=== PATIENT | female | born 1960 | race Caucasian/White ===

== ENCOUNTER 2017-11-06 19:02 | Emergency (ER) | payer BC ==
[~2017-11-06] VITALS: Ht 157.5 cm; Wt 81.2 kg
[~2017-11-06 19:02] MED LIST: ASPI81TA28 PO; ATOR10TA82 PO; CALC-20 PO; CLR10 PO; GLC/500 PO; LISI2.5T5 PO
[2017-11-06 19:21] VITALS: TEMP 36.7; Ht 157.5 cm; Wt 81.2 kg
[2017-11-06] MEDS ORDERED: ACETAMINOPHEN 500 MG TAB PO STA (19:41)
--- NOTE | 2017-11-06 19:50 | EMERGENCY ROOM VISIT NOTE ---
ED Visit Note First contact with patient: 19:25 CHIEF COMPLAINT: Head injury HISTORY OF PRESENT ILLNESS: This 57-year-old female patient presented to the emergency department 1 day after receiving a head injury when she tripped in the basement, striking the posterior aspect her head on the concrete wall. There was no brief loss of consciousness. There has been no vomiting. The patient complains of tenderness on palpation of the crown of the head with some bilateral neck discomfort. The patient denies loss of consciousness, amnesia, confusion, visual disturbances, vomiting, balance issues, weakness, numbness or tingling. The headache has been getting worse today, however she has taken no pain medication. The patient complains of some mild bilateral neck pain. The patient has taken ibuprofen intermittently for the pain yesterday. The patient rates the pain as 4/10 and sharp. The patient denies bowel or bladder dysfunction. The patient denies any other injuries. REVIEW OF SYSTEMS: A 10 system review of systems was performed with positives and pertinent negatives listed in the history of present illness. All other systems were reviewed and are negative. ALLERGIES: Latex, sulfa MEDICATIONS: Metformin, Lipitor, lisinopril, aspirin, Claritin PMH: Diabetes, IBS SOCIAL HISTORY: The patient lives locally with family. She denies drug, alcohol , tobacco use. PHYSICAL EXAM: Vital Signs: Reviewed Nurse's notes, vital signs stable. GENERAL : This is a 57-year-old white female, in no acute distress, well-developed, well -nourished. NEURO: The patient is alert, oriented to person place and time, and coherent. Normal mini mental status exam. Negative Romberg and pronator drift. Cerebellar function intact. HEAD: Normocephalic, atraumatic. There is some mild tenderness on the posterior aspect of the scalp. EYES: Pupils are equal round and reactive to light and accommodation. EOMs are full and optic discs and fundi are normal. There is no swelling or discoloration of the tissue surrounding the eyes. EARS: External auditory canals clear without blood. NOSE: Patent without tenderness. No septal hematoma. FACE: No facial bone tenderness. NECK: Supple. There is no cervical spine tenderness. The patient does not have tenderness with movement of the neck. There is some mild tenderness on palpation of the trapezius muscle. RADIOLOGY: HEAD WITHOUT CONTRAST (CT) CT DOSE: 537.48 mGy.cm HISTORY: Trauma fall, head injury TECHNIQUE: Multiaxial CT images of the head were performed without the use of intravenous contrast. A dose lowering technique was utilized adhering to the principles of ALARA. Comparison: None. Findings: The paranasal sinuses and mastoid air cells are clear. The calvarium and skull base are intact. The ventricles and sulci are within normal limits. There is no mass, hematoma, midline shift, or acute infarct. Impression: No acute intracranial abnormality. The above report was generated using voice recognition software. It may contain grammatical, syntax or spelling errors. Electronically signed by: Brett Villegas M.D. 11/06/2017 8:21 PM Dictated Date/Time: 11/06/2017 8:20 PM ED COURSE: I examined the patient. I discussed benefits versus risks associated with CT scanning at this time. The patient's neurological examination is overall negative, however she does have significant tenderness to palpation with neck stiffness. The patient is very concerned, and states she would prefer to have the CT scan performed despite the risks associated with radiation. CT scan was reviewed by myself and radiologist as above. I discussed the findings with the patient at bedside. The patient was given Tylenol for pain. The patient was discharged home in good condition ambulatory. I attest that I have personally reviewed the patient's current medication list. Patient was found to have normal blood pressure on screening and does not require follow-up. Etiologies such as migraine, tumor, headache, sinus thrombosis, temporal arteritis, sinusitis, CVA, ICH, SAH, infection, as well as others were entertained. DIAGNOSIS: Closed head injury Current/Historical Medications Scheduled Aspirin (Aspirin Ec), 81 MG PO DAILY Atorvastatin (Lipitor), 10 MG PO DAILY Calcium Carbonate-Vitamin D (Calcium 600 + D), 1 TAB PO DAILY Lisinopril (Lisinopril), 2.5 MG PO DAILY Loratadine (Claritin), 10 MG PO DAILY Metformin Hcl (Glucophage), 500 MG PO BID Allergies Coded Allergies: Latex (Verified Allergy, Intermediate, RASH, 10/05/10) Sulfa Drugs (Verified Allergy, Intermediate, RASH, 10/05/10) Unclassified Drugs (Verified Allergy, ANTIFUNGALS - RXN UNKNOWN, 10/05/10) Uncoded Allergies: WOOL (Allergy, Unknown, RASH, 10/06/10) Vital Signs Date Time Temp Pulse Resp B/P (MAP) Pulse Ox O2 Delivery O2 Flow Rate FiO2 11/06/17 20:43 62 18 121/71 98 Room Air 11/06/17 19:21 36.7 73 18 138/79 99 Room Air Medications Administered Medications (Trade) Dose Ordered Sig/Yonis Route Start Time Stop Time Status Last Admin Dose Admin Acetaminophen (Tylenol Tab) 1,000 mg NOW STAT PO 11/06/17 19:41 11/06/17 19:45 DC 11/06/17 19:56 1,000 MG Departure Information Impression Primary Impression: Closed head injury Dispostion Home / Self-Care Condition GOOD Referrals Marimar Garcia DO (PCP) Patient Instructions ED Head Injury Closed, My [facility] Additional Instructions You have been treated in the Emergency Department for a Closed Head Injury. CT Scan of your head/brain demonstrated no acute bleeding or other abnormalities. This does not completely rule out the risk for future damage to the brain. For pain control, you can use the following [id number]-[id number] medicines (if >12 yo): Ibuprofen(Motrin, Advil) may be used for fever or pain. Use 600mg every six hours as needed. Take with food. Avoid using more than 2400mg in a 24 hour period. Do not use 2400mg per day for more than three consecutive days without physician direction. Prolonged inappropriate use can lead to stomach upset or ulcers. (AND/OR) Acetaminophen(Tylenol) may be used for fever or pain. Use 1000mg every six hours as needed. Avoid using more than 3000mg in a 24 hour period. You should relax in a quiet, dark place for the rest of the day. Avoid any possible triggers including: cigarette smoke, caffeine, nicotine, chocolate, wine, beer, loud noises or music, or bright lights. You should schedule a follow-up appointment in 2-3 days with your Primary Care Provider or established Neurologist for further evaluation and treatment of your Headache. Return to the Emergency Department if your current symptoms worsen despite treatment course outlined above, or if you develop any of the following symptoms : intractable pain despite aforementioned treatment course, visual disturbances , loss of vision, unilateral weakness or facial drooping, slurring of speech, loss of coordination, or loss of consciousness. Problem Qualifiers Primary Impression: Closed head injury Encounter type: initial encounter Qualified Codes: S09.90XA - Unspecified injury of head, initial encounter
--- NOTE | 2017-11-06 20:22 | DIAGNOSTIC IMAGING REPORT ---
HEAD WITHOUT CONTRAST (CT) CT DOSE: 537.48 mGy.cm HISTORY: Trauma fall, head injury TECHNIQUE: Multiaxial CT images of the head were performed without the use of intravenous contrast. A dose lowering technique was utilized adhering to the principles of ALARA. Comparison: None. Findings: The paranasal sinuses and mastoid air cells are clear. The calvarium and skull base are intact. The ventricles and sulci are within normal limits. There is no mass, hematoma, midline shift, or acute infarct. Impression: No acute intracranial abnormality. The above report was generated using voice recognition software. It may contain grammatical, syntax or spelling errors. Electronically signed by: Brett Villegas M.D. 11/06/2017 8:21 PM Dictated Date/Time: 11/06/2017 8:20 PM
[2017-11-06 20:43] VITALS: BP 121/71; PULSE 62; O2SAT 98
== END 2017-11-06 20:43 | disposition home or self-care (01) ==
LOC: C.EDB 19:04 → C.EDD 20:43
DX: S06.9X0A Unspecified intracranial injury without loss of consciousness, initial encounter (principal); W01.198A Fall on same level from slipping, tripping and stumbling with subsequent striking against other object, initial encounter; E11.9 Type 2 diabetes mellitus without complications; Z79.84 Long term (current) use of oral hypoglycemic drugs; Z79.82 Long term (current) use of aspirin; Z91.040 Latex allergy status; Z88.2 Allergy status to sulfonamides; Z91.048 Other nonmedicinal substance allergy status